=== PATIENT | male | born 2000 | race Caucasian/White ===

== ENCOUNTER 2024-10-01 08:09 | Outpatient (CLI) | payer BC, SELFPAY | END 2024-10-01 08:10 | disposition home or self-care (01) | PROVIDERS: Visit Provider Family Medicine | DX: R51.9 Headache, unspecified (principal); H53.9 Unspecified visual disturbance; Z13.6 Encounter for screening for cardiovascular disorders; Z13.29 Encounter for screening for other suspected endocrine disorder | CPT/HCPCS: 80053; 80061; 84443 ==

== ENCOUNTER 2024-10-19 07:15 | Outpatient (CLI) | payer BC, SELFPAY ==
--- NOTE | 2024-10-19 07:15 | CRLHL7_ITS ---
For Patients: As a result of the Century Cures Act, medical imaging exams and procedure reports are released immediately into your electronic medical record. You may view this report before your referring provider. If you have questions, please contact your health care provider. Indication: Headaches. Technique: Noncontrast sagittal T1, axial FLAIR, T2, diffusion weighted sequences are provided. Compared to report from prior study from November 03, 2021 Findings: The ventricles, sulci and gyri are normal size, shape and contour for age. The midline structures are centrally located with no evidence of shift. There are no suspicious intra or extra-axial fluid collections. No region of restricted diffusion. Expected flow voids in the cavernous carotids and basilar artery. Impression: 1. Stable, no radiographic evidence of acute intracranial abnormalities. Dictated by Bret Smith MD @ 10/19/2024 9:00:21 AM (Electronically Signed)
== END 2024-10-19 07:16 | disposition home or self-care (01) ==
PROVIDERS: Visit Provider Family Medicine
DX: R51.9 Headache, unspecified (principal); H53.9 Unspecified visual disturbance; H55.00 Unspecified nystagmus
CPT/HCPCS: 70551